=== PATIENT | male | born 1945 | race Caucasian/White ===

== ENCOUNTER 2018-12-19 15:08 | Observation (INO) ==
[2018-12-19] MEDS ORDERED: ASPIRIN PO ONE (15:15)
[2018-12-19 15:43] LABS: BASO# 0.03 X1000 (0.0-0.2); BASO% 0.4 % (0.0-0.8); EOS# 0.18 X1000 (0.0-0.7); EOS% 2.5 % (0.0-10.0); HEMATOCRIT 41.2 % (42.0-52.0); HEMOGLOBIN 13.6 g/dL (14.0-18.0); IMM GRAN# 0.02 X1000 (0.0-0.04); IMM GRAN% 0.3 % (0.0-0.5); LYMPH# 0.97 X1000 (1.2-3.4); LYMPH% 13.5 % (20.5-51.1); MCH 31.3 PG (27-31); MCV 94.7 FL (81-99); MONO# 0.85 X1000 (0.11-0.59); MONO% 11.8 % (1.7-9.3); MPV 10.3 FL (7.4-10.4); NEUT# 5.13 X1000 (1.4-6.5); NEUT% 71.5 % (42.2-75.2); PLT 174 X1000 (130-400); RBC 4.35 XMIL (4.7-6.1); RDW 13.3 % (11.5-14.5); WBC 7.18 X1000 (4.8-10.8)
[2018-12-19 15:56] LABS: INR 1.03
--- NOTE | 2018-12-19 15:56 | Diag Imaging Result Doc PS360 ---
EXAM: CHEST-2 VIEWS HISTORY: chest pain TECHNIQUE: Two views COMPARISON: 04/29/2017 FINDINGS: The lungs are well expanded. The heart is not enlarged. The vessels are not distended. There are no infiltrates. No pleural effusions. Left lower lobe granuloma. IMPRESSION: No acute abnormality. Electronically signed by Jorge Luis Arndt 12/19/2018 3:54 PM
[2018-12-19 15:57] LABS: PTT 35.3 Seconds (22.3-41.8)
[2018-12-19 16:04] LABS: AGAP 12; ALBUMIN 4.2 g/dL (3.5-5.0); ALKALINE PHOSPHATASE 88 U/L (32-122); BUN 12 mg/dL (8-22); CALCIUM 9.4 mg/dL (8.8-10.2); CHLORIDE 101 mmol/L (98-107); CK PROFILE 175 U/L (24-204); COSMO 279; CREATININE 0.9 mg/dL (0.7-1.2); ESTIMATED GFR > 60; GLUCOSE 88 mg/dL (70-104); GOT 14 U/L (10-34); GPT 9 U/L (10-44); SODIUM 140 mmol/L (136-145); TCO2 27 mmol/L (25-35)
--- NOTE | 2018-12-19 16:09 | PROVIDER DOCUMENTATION ---
HPI-Chest Pain - General Chief Complaint: Chest Pain Stated Complaint: CHEST PAIN Time Seen by Provider: 12/19/18 15:33 Source: patient Allergies/Adverse Reactions: Patient Allergies Allergy/AdvReac Type Severity Reaction Status Date / Time No Known Allergies Allergy Verified 12/19/18 15:17 Home Medications: Home Medication List Medication Instructions Recorded Confirmed Last Taken Type Citalopram [Celexa] 40 mg PO DAILY 12/19/18 12/19/18 Unknown History Fluticasone 27.5 Mcg Nasal Spr 1 dose INH DAILY 12/19/18 12/19/18 Unknown History [Veramyst Nasal [place]] Lisinopril 10 mg PO DAILY 12/19/18 12/19/18 Unknown History Silodosin 8 mg PO DAILY 12/19/18 12/19/18 Unknown History Tamsulosin [Flomax] 0.4 mg PO DAILY 12/19/18 12/19/18 Unknown History - History of Present Illness-CP Nature of Presenting Problem: Patient is a 73 yowm who complains of left-sided chest pain associated with SOB and lightheadedness x 2 days. The s/s only occur with exertion. Denies n/c, fever, diaphoresis, or any other complaints. The pain radiates to his left arm when it occurs. Denies chest pain or discomfort at this time. He is non-toxic in appearance. Quality of Pain: reports: other ("discomfort") Review of Systems - Adult - REVIEW OF SYSTEMS - ADULT Constitutional: reports: no symptoms reported. denies: chills, fever Eyes: reports: no symptoms reported Ears, Nose, Mouth & Throat: reports: no symptoms reported Cardiovascular: reports: see HPI Respiratory: reports: see HPI Gastrointestinal: reports: no symptoms reported Genitourinary: reports: no symptoms reported Musculoskeletal: reports: no symptoms reported Integumentary: reports: no symptoms reported Neurological: reports: no symptoms reported Psychiatric: reports: no symptoms reported Endocrine: reports: no symptoms reported Hematologic/Lymphatic: reports: no symptoms reported Allergic/Immunologic: reports: no symptoms reported All Other Systems: Reviewed and Negative Past History - Adult - PAST MEDICAL HISTORY-ADULT Review of Records: reports: Old Records Reviewed, Nursing Assessment Review, Medications Reviewed, Social history reviewed & non-contributory. Major Childhood Illnesses: reports: denies history Cardiovascular: reports: CHF Respiratory: reports: denies history Gastrointestinal: reports: denies history Musculoskeletal: reports: denies history Neurological: reports: denies history Psychiatric: reports: denies history Endocrine/Immune: reports: denies history - PRIOR SURGERIES/PROCEDURES Surgical/Procedure History: reports: reviewed, not pertinent. denies: recent surgery - FAMILY HISTORY Family History: reviewed, not pertinent - SOCIAL HISTORY Smoking: non-smoker, quit greater than 1 year Physical Exam-General - PHYSICAL EXAM-ADULT Initial Vital Signs Reviewed: Yes - CONSTITUTIONAL General Appearance: alert, no apparent distress. negative: lethargic, slow to respond - EYES Eyes: PERRL/EOMI, pink conjunctivae - HEAD, EARS, NOSE, MOUTH & THROAT HENMT: normocephalic/atraumatic, moist mucous membranes - NECK Neck: full range of motion, supple, normal inspection - RESPIRATORY Respiratory: chest non-tender, lungs clear, normal breath sounds, no respiratory distress, no accessory muscle use - CARDIOVASCULAR Cardiovascular: normal peripheral pulses, regular rate, rhythm, no edema, no gallop, no JVD, no murmur - GASTROINTESTINAL (ABDOMEN) Abdominal Exam: normal bowel sounds, non tender, soft - MUSCULOSKELETAL Back Exam: normal inspection Extremity: normal range of motion, non-tender, normal gait, normal inspection - SKIN Integumentary: normal color, warm/dry. negative: cyanosis, diaphoresis, jaundice, mottled, pallor - NEUROLOGIC Neurologic: grossly normal, no motor/sensory deficits - PSYCHIATRIC Psych/Mental Status: normal mood/affect, normal thought content, normal thought process, oriented x 3 - HEART Score HEART Score: History: Highly Suspicious HEART Score: ECG: Non-Specific Repolarization Disturbance/LBBB/PM HEART Score: Age: > or = 65 Years HEART Score: Risk Factors for Atherosclerotic Disease: 1 or 2 Risk Factors HEART Score: Troponin: < or = Normal Limit Total HEART Score:: 6 Progress - PLAN OF CARE/RESULTS Progress/Plan/Lab Results: Vital Signs - 8 hr 12/19/18 15:11 Temperature 98.3 F Pulse Rate 103 H Respiratory Rate 14 Blood Pressure 159/76 O2 Sat by Pulse Oximetry 97 Laboratory Results - last 24 hr 12/19/18 12/19/18 12/19/18 15:21 15:21 15:21 WBC 7.18 RBC 4.35 L Hgb 13.6 L Hct 41.2 L MCV 94.7 MCH 31.3 H MCHC 33.0 RDW Std Deviation 13.3 Plt Count 174 MPV 10.3 Immature Gran % (Auto) 0.3 Neut % (Auto) 71.5 Lymph % (Auto) 13.5 L [place] % (Auto) 11.8 H Eos % (Auto) 2.5 Baso % (Auto) 0.4 Immature Gran # (Auto) 0.02 Neut # (Auto) 5.13 Lymph # (Auto) 0.97 L [place] # (Auto) 0.85 H Eos # (Auto) 0.18 Baso # (Auto) 0.03 PT INR PTT (Actin FS) Sodium 140 Potassium 4.0 Chloride 101 Carbon Dioxide 27 Anion Gap 12 BUN 12 Creatinine 0.9 Estimated GFR/1.73 m2 > 60 BUN/Creatinine Ratio 13 Glucose 88 Calculated Osmolality 279 Calcium 9.4 Total Bilirubin 0.50 AST 14 ALT 9 L Alkaline Phosphatase 88 Creatine Kinase 175 Troponin T Wnz-L-Ippskcdgrgt Pept 59 Total Protein 6.0 L Albumin 4.2 Globulin 2.0 Albumin/Globulin Ratio 2.0 12/19/18 12/19/18 15:21 15:21 WBC RBC Hgb Hct MCV MCH MCHC RDW Std Deviation Plt Count MPV Immature Gran % (Auto) Neut % (Auto) Lymph % (Auto) [place] % (Auto) Eos % (Auto) Baso % (Auto) Immature Gran # (Auto) Neut # (Auto) Lymph # (Auto) [place] # (Auto) Eos # (Auto) Baso # (Auto) PT 14.0 INR 1.03 PTT (Actin FS) 35.3 Sodium Potassium Chloride Carbon Dioxide Anion Gap BUN Creatinine Estimated GFR/1.73 m2 BUN/Creatinine Ratio Glucose Calculated Osmolality Calcium Total Bilirubin AST ALT Alkaline Phosphatase Creatine Kinase Troponin T < 0.010 Rfo-L-Weczancyhyd Pept Total Protein Albumin Globulin Albumin/Globulin Ratio Orders Category Date Time Status Cardiac Monitoring DIRECTED Care 12/19/18 15:15 Active Oxygen Therapy- ED Nursing DIRECTED Care 12/19/18 15:15 Active Saline Loc NOW Care 12/19/18 15:15 Active CHEST-2 VIEWS [RAD] Stat Exams 12/19/18 15:15 Completed CBC WITH ELECTRONIC DIFF [HEME] Stat Lab 12/19/18 15:21 Completed CK PROFILE [SP CHEM] Stat Lab 12/19/18 15:21 Completed COMPREHENSIVE METABOLIC PANEL [CHEM] Stat Lab 12/19/18 15:21 Completed PRO B-NATRIURETIC PEPTIDE Stat Lab 12/19/18 15:21 Completed PROTIME WITH INR [COAG] Stat Lab 12/19/18 15:21 Completed PTT [COAG] Stat Lab 12/19/18 15:21 Completed TROPONIN T Stat Lab 12/19/18 15:21 Completed Aspirin Med 12/19/18 15:15 Discontinued 325 mg PO NOW ONE CP/SOB/Palp >45 yrs of Age Stat Oth 12/19/18 15:15 Ordered EKG [EKG] Stat Ther 12/19/18 15:15 Ordered Result Diagrams: 12/19/18 15:21 12/19/18 15:21 - REASSESSMENT Reassessment #1 Time Reassessed: 16:20 Status: other (Admitting HPS paged. Pt denies cp at this time. He is in agreement with admission plan.) - EKG 1 Time of EKG reading by physician:: 15:17 EKG Read and Signed by:: Elizabeth Chang EKG Interpretation (*Must complete 3 of following elements*): Abnormal Rate: 102 Rhythm: sinus tach, non specific ST changes in lateral leads QRS: normal ST Wave: non-specific ST changes Prior EKG Comparison: changes noted - XRAY 1 XRAY Study: Chest ([facility] - [address] [place], [place] [id number] [facility] - [address] [place] [address] Department of Imaging Patient: MEET PASTOR Date: 12/19/18#: [id number] : 1945DM Status: PRE ERAcct#: [id number] Age/Sex: 73/MRoom/Bed: Loc: P.ED Ordering Physician: Elizabeth Chang MD Family Physician: Lyle Watson MD Reason for Procedure: chest pain Signed EXAM: CHEST-2 VIEWS HISTORY: chest pain TECHNIQUE: Two views COMPARISON: 04/29/2017 FINDINGS: The lungs are well expanded. The heart is not enlarged. The vessels are not distended. There are no infiltrates. No pleural effusions. Left lower lobe granuloma. IMPRESSION: No acute abnormality. Electronically signed by Jorge Luis Arndt 12/19/2018 3:54 PM 12/19/18 1554 Interpreting Physician: Jorge Luis Arndt MD Dictated Date/Time: 12/19/18 1553 cc: Elizabeth Chang MD; Lyle Watson MD) - CONSULTS/PCP/HOSPITALIST Notification #1 *Consult/PCP/Hospitalist*: GIACOMO Rodriguez Time Discussed: 16:20 Reason/Comments: admission- cp Consult Disposition: Will see in ED, Admit Departure - Departure Date of Disposition Decision: 12/19/18 Time of Disposition Decision: 16:20 DIAGNOSIS: Shortness of breath Chest pain Qualifiers: Chest pain type: unspecified Qualified Code(s): R07.9 - Chest pain, unspecified Disposition: ADMITTED INPATIENT 09 Certified Medical Emergency: Emergent Condition: Stable Referrals and Follow-Ups: Lyle Watson MD [Primary Care Provider] - - Critical Care Note This patient required my direct & personal management of CC.: No Attestation - Physician/ DIAMANTE Attestation Patient care was provided by Advanced Practice Provider:: Yes Advanced Practice Provider:: Manuel Fisher Advanced Practice Provider documentation review:: The Mid-level provider documentation, treatment plan and medical decision making was reviewed by the physician who agrees with all treatment and medical decision making by the MLP. The physician spent face to face time with patient:: No Advanced Practice Provider documentation review:: Supervising physician onsite and consulted in the evaluation and care of this patient. The physician did not have a face to face encounter with the patient.
[2018-12-19] MEDS ORDERED: MORPHINE IV PRN (17:19)
[2018-12-19] MEDS ORDERED: TYLENOL PO PRN (17:19)
[2018-12-19] MEDS ORDERED: ZOFRAN IV PRN (17:19)
--- NOTE | 2018-12-19 17:29 | EKG Report ---
Test Performed on : 12/19/2018 3:15:34 PM Test Reason : chest pain Blood Pressure : / mmHG Vent. Rate : 102 BPM Atrial Rate : 102 BPM P-R Int : 138 ms QRS Dur : 070 ms QT Int : 346 ms P-R-T Axes : 053 093 069 degrees QTc Int : 450 ms Poor data quality, interpretation may be adversely affected Sinus tachycardia. Rightward axis Low voltage QRS Borderline ECG When compared with ECG of 29-APR-2017 22:29, No significant change was found Unconfirmed Result
[2018-12-19] MEDS: PRILOSEC PO SCH (17:46)
[2018-12-19] MEDS ORDERED: LOVENOX SUBQ SCH (18:00)
--- NOTE | 2018-12-19 18:09 | Diag Imaging Result Doc PS360 ---
EXAM: CT THORAX W/O CONTRAST INDICATION: chest congestion cough TECHNIQUE: This exam was performed using automated exposure control, adjustment of mA or kV according to patient size, and/or use of iterative reconstruction technique. COMPARISON: None. FINDINGS: There are mild airspace opacities in the left upper lobe near the apex, the perihilar region in the right upper lobe, and the medial lower lobes bilaterally. This suggests mild multifocal pneumonitis. There is mild subsegmental atelectasis at the lower lung zones bilaterally. There is a calcified granuloma in the left lower lobe. There is no pleural fluid collection and no pneumothorax. There are calcified mediastinal lymph nodes indicating prior granulomatous disease. There is aortic atherosclerotic calcification and coronary artery calcification. There is trace pericardial fluid. There is no evidence of cardiomegaly. Limited views of the upper abdomen are essentially unremarkable. IMPRESSION: Mild bilateral multifocal airspace infiltrates as described. Electronically signed by Lyle Munoz 12/19/2018 6:06 PM
--- NOTE | 2018-12-19 19:42 | HISTORY AND PHYSICAL ---
PRIMARY CARE PHYSICIAN: Lyle Watson MD CHIEF COMPLAINT: Chest discomfort. HISTORY OF PRESENT ILLNESS: This is a 73-year-old male with a past medical history of dyslipidemia and hypertension who presented to the emergency department complaining of chest discomfort for the last 5 to 6 days. He reports that the sensation is located in the central thoracic area, suprasternal area, sometimes radiates to the left arm. Denies any radiation to the back or to the jaw. Denies any sweating or nausea or shortness of breath. He notices that sensation when he is walking. He also complains of some cough that he attributes to possible flu. He was not spitting out anything. He denies any fever or chills. He denies any sick contacts. Because of his risk factors for coronary artery disease, we decided to admit this patient to observation for chest pain workup. PAST MEDICAL HISTORY: 1. Hypercholesterolemia. 2. Hypertension. 3. Benign prostatic hypertrophy. 4. Bladder cancer. 5. Admitted April 2017 for a TIA. PAST SURGICAL HISTORY: Hernia repair. ALLERGIES: No known drug allergies. FAMILY HISTORY: Noncontributory. REVIEW OF SYSTEMS: Eleven systems were reviewed and all symptoms are related to H and P. PHYSICAL EXAMINATION: VITAL SIGNS: Temperature 98.3 degrees, heart rate 103, respiratory 14, blood pressure 159/76, and O2 saturation 97% on room air. GENERAL: On examination, this is a 73-year-old male, lying in bed, in no acute distress. HEENT: Head is normocephalic, atraumatic. Pupils equal, round, reactive to light and accommodation. Anicteric sclerae. Pale conjunctivae. NECK: No JVD noted. No carotid bruits. No lymphadenopathy. No thyromegaly. CARDIOVASCULAR: S1, S2 heard. No murmurs, gallops, or rubs. Regular rate and rhythm. RESPIRATORY: Clear bilaterally to auscultation. No work of breathing. Not using accessory muscles. ABDOMEN: Soft, nontender to palpation. Bowel sounds present. No organomegaly. EXTREMITIES: No clubbing, cyanosis, or edema. Peripheral pulses present in both legs. NEUROLOGIC: Patient alert and oriented x3. Moves 4 extremities. LABORATORY DATA: First set of troponins were negative. The white cell count 7.18, hemoglobin 10.6, hematocrit 41.2, platelets are normal. BMP is completely normal. ProBNP is 59. ASSESSMENT AND PLAN: 1. Chest pain. We are admitting this patient to rule out any acute coronary syndrome. First set of troponins are negative. No grossly obvious ST changes in the EKG. We are going to order an echocardiogram Lexiscan tomorrow. Because of his symptoms that he attributes to flu, cough, and chest discomfort, we are going to also check CT of the thorax without contrast as well to rule out any pneumonia on this patient. 2. Hypertension. We will continue with lisinopril. 3. Hyperlipidemia. We are going to check a lipid panel today. The patient was taking atorvastatin, but I do not see that in the list of home medications. As we mentioned before, we will check lipid panel and we will go from there. 4. Benign prostatic hypertrophy. We will continue home medications. 5. Disposition. Depending upon the results of the exams mentioned above. cc: Jere Witt MD MTDD
[2018-12-19] MEDS ORDERED: VANCOMYCIN IV PER PHARMACY MISC SCH (20:00)
[2018-12-19] MEDS ORDERED: FLOMAX PO SCH (21:15)
[2018-12-19] MEDS ORDERED: PRINIVIL PO SCH (21:15)
[2018-12-19] MEDS: VANCOMYCIN 1 GM/NS 1 GM/250 ML IVPB IV SCH (22:38)
[2018-12-20] MEDS: VANCOMYCIN 1 GM/NS 1 GM/250 ML IVPB IV SCH (00:03)
[2018-12-20] MEDS: ZOSYN 3.375 GM in NS 50 ML IV SCH ×4 (02:06→14:35)
[2018-12-20] MEDS: PRILOSEC PO SCH (06:04)
[2018-12-20 06:28] LABS: HEMATOCRIT 40.3 % (42.0-52.0); HEMOGLOBIN 13.1 g/dL (14.0-18.0); MCHC 32.5 g/dL (33-37); MCV 95.3 FL (81-99); MPV 10.6 FL (7.4-10.4); RBC 4.23 XMIL (4.7-6.1); RDW 13.3 % (11.5-14.5); WBC 5.67 X1000 (4.8-10.8)
[2018-12-20 06:45] LABS: AGAP 9; BUN 12 mg/dL (8-22); CHLORIDE 104 mmol/L (98-107); CHOLESTEROL 134 mg/dL (0-200); COSMO 282; CREATININE 0.8 mg/dL (0.7-1.2); ESTIMATED GFR > 60; GLUCOSE 121 mg/dL (70-104); HDL 53 mg/dL (35-55); LDL 66 mg/dL; POTASSIUM 4.3 mmol/L (3.5-5.1); SODIUM 141 mmol/L (136-145); TCO2 28 mmol/L (25-35); TRIGLYCERIDES 75 mg/dL (39-160); VLDL 15 mg/dL
[2018-12-20] MEDS ORDERED: PRINIVIL PO SCH (09:00)
[2018-12-20] MEDS ORDERED: CELEXA PO SCH (09:00)
[2018-12-20] MEDS ORDERED: RAPAFLO PO SCH (09:00)
[2018-12-20] MEDS ORDERED: FLOMAX PO SCH (09:00)
[2018-12-20] MEDS ORDERED: LEXISCAN ONE (10:00)
[2018-12-20] MEDS ORDERED: AMINOPHYLLINE ONE (10:00)
--- NOTE | 2018-12-20 14:53 | GRADED EXERCISE REPORT ---
DATE: 12/20/2018 INDICATION: Chest pain. ORDERING PHYSICIAN: I believe DR. Rm SUMMARY: He underwent Lexiscan infusion per protocol. Baseline blood pressure is 147/82, heart rate 75. Baseline EKG was really nonspecific. He did develop chest pressure and tightness during the Lexiscan. He did have some ST depression but it did not qualify for greater than 1 mm change and, therefore, did not qualify for ischemic changes. However, he was clinically positive. His peak blood pressure 154/88, heart rate 112. After the test was completed though, he started developing some chest discomfort but also left shoulder pain radiating to his hand and up into his face. He says that it is worse it has been. We got an EKG at that time which showed to me more pronounced ST changes in 2, AVF, V5, V6, and AVR had an increase there. Those looked greater than 1 mm depression, especially in 2, AVF, V5, V6, so I would say there was some ST changes. We gave him some coffee. We ended up giving him 75 mg of aminophylline and the chest pain resolved and his EKG changes in the inferolateral leads resolved as well. The patient currently chest pain free. I did contact Dr. Toussaint to have him assess the EKG changes, which we will get a stat post stress echocardiogram and finish his myocardial imaging, and decide about a future course at this point. I also contacted primary team, Radha Michelle, nurse practitioner, about reassessing the patient after he has completed all his imaging. The test, I felt, initially, clinically positive and electrically positive with the stress test imaging after the 6 minute protocol was completed with ST changes subsequently, so myocardial perfusion will be reported separately. cc: Vikas Brunner MD
[2018-12-20] MEDS ORDERED: VANCOMYCIN 1,500 MG in NS 250 ML IV SCH (15:00)
--- NOTE | 2018-12-20 15:30 | Diag Imaging Result Document ---
PROCEDURE NAME: MYOCARDIAL PERF SCAN, STR/REST - 12/20/2018 SUMMARY: The patient was administered 11.3 mCi of technetium-99m sestamibi, after which resting cardiac images were obtained. The patient was subsequently administered Lexiscan 0.4 mg intravenously, after which the heart rate went from 75 beats per minute to 112 beats per minute and the blood pressure went from 147/82 to 143/83. With Lexiscan, the patient reported chest discomfort suspicious for angina. Following the administration of Lexiscan, the patient was administered 33.0 mCi of technetium-99m sestamibi, after which gated stress cardiac images were obtained. Baseline ECG demonstrated normal sinus rhythm. The patient's ECG demonstrated no significant change in the first several minutes. However, as patient recovered, he manifested 1.[address]-segment depression in the lateral precordial leads which ultimately improved over several minutes. The patient's chest symptoms resolved. SPECT images were reconstructed in the short, horizontal, and vertical long axis. Review of these images demonstrated mildly diminished activity in the apical anterior wall and apex, left ventricle on stress images which improves on resting images. Gated images demonstrate a calculated left ventricular ejection fraction of 70% with symmetrical wall motion/thickening. CONCLUSIONS: 1. Adequate response to Lexiscan. 2. Clinically positive for chest pain with Lexiscan. 3. Electrocardiographically positive for Lexiscan-induced myocardial ischemia. 4. Lexiscan sestamibi images demonstrate mild reversibility in the apical anterior wall and apex as described, suggesting inducible myocardial ischemia in the distribution of left anterior descending coronary. Normal left ventricular systolic function demonstrated. Clinical correlation recommended. cc: MD Jefferson Chris MD
[2018-12-20 15:49] VITALS: BP 129/68
--- NOTE | 2018-12-20 18:05 | ECHO REPORT ---
ORDER DATE: 12/19/2018 SUMMARY: 1. Technically difficult study due to limited acoustic window quality. 2. Aortic valve is trileaflet and opens normally on 2-dimensional images. Mitral and tricuspid valves are without evidence of structural abnormality, while pulmonic valve is not well demonstrated. There is trace tricuspid regurgitation. The aortic root is normal in size. 3. Normal left ventricular dimensions suggested. Estimated left ventricular ejection fraction appears to be at least 60%. No obvious regional wall motion abnormality can be appreciated. Doppler suggests grade 1 left ventricular diastolic dysfunction. Left atrium, right atrium, and right ventricle are normal in size with grossly preserved right ventricular systolic function. 4. No pericardial effusion. 5. Appearance of inferior vena cava suggests normal central venous pressure. CONCLUSIONS: 1. Technically difficult study. 2. No significant valvular abnormality demonstrated. 3. Estimated left ventricular ejection fraction is at least 60%, without obvious wall motion abnormality. 4. Grade 1 left ventricular diastolic dysfunction suggested. cc: MD Jere Chris MD
--- NOTE | 2018-12-20 23:19 | DISCHARGE SUMMARY ---
ADMISSION DATE: 12/19/2018 DISCHARGE DATE: 12/20/2018 DATE OF TRANSFER: 12/20/2018 Patient transferred to [facility] for left heart catheterization. DISCHARGE DIAGNOSIS: 1. Chest pain. The patient was admitted to rule out acute coronary syndrome. He did have a positive stress test. All his imaging has been evaluated by Dr. Toussaint. [facility] with [facility] and they agree the patient does need to follow up with a left heart catheterization and will be transferred to their service for further treatment and evaluation. 2. Hypertension. Continue lisinopril. 3. Hyperlipidemia. Patient has been taken a statin. 4. Bilateral infiltrates seen on chest CT. However, patient has been afebrile, no white count, no complaints of fever or productive cough, nontoxic appearance. He was initiated on intravenous antibiotics. This may need to be reevaluated. 5. Bladder cancer history. 6. Transient ischemic attack in April 2017. HOSPITAL COURSE: Briefly Mr. Gomez is a 73-year-old male with a past medical history of dyslipidemia, hypertension, presented to the ED complaining of chest discomfort for 5 to 6 days. The sensation was located in the central thoracic area substernal that radiated to his left arm at times but no radiation to the back or jaw. There was no diaphoresis, nausea or shortness of breath associated with it. He noticed this sensation when he is walking, however he did complain of some flu symptoms but no fever or chills. Denied any sick contacts. Because of his risk factors for coronary artery disease, the patient was admitted for observation and chest pain workup. He has had 3 sets of negative cardiac enzymes. No white count, continues to be afebrile however he did have a positive stress test with EKG changes. Dr. Toussaint spoke with [facility]. They are in agreement the patient needs to be transferred for left heart catheterization. VITAL SIGNS: At time of discharge temperature is 98.3 degrees, heart rate 103, respirations 14, blood pressure 159/76, O2 97% on room air. CURRENT MEDICATIONS: 1. Prinivil 10 mg p.o. at bedtime. 2. Flomax 0.4 mg p.o. at bedtime. 3. Morphine 2 mg IV q.3 hours p.r.n. 4. Tylenol 650 mg p.o. q.6 hours p.r.n. 5. Celexa 40 mg p.o. daily. 6. Lovenox 40 mg subcu q.24. 7. Prilosec 40 mg p.o. daily. 8. Zofran 4 mg IV q.4 hours p.r.n. 9. Vancomycin PKS to dose. 10. Zosyn 3.375 g IV q.6 hours. 11. Rapaflo 8 mg p.o. daily. DISPOSITION: Patient is being transferred to [facility] for left heart catheterization. Dictated by OZIEL Hicks for Jefferson Wiggins MD cc: Lyle Watson MD
--- NOTE | 2018-12-21 01:32 | DISCHARGE SUMMARY ---
ADMISSION DATE: 12/19/2018 DISCHARGE DATE: 12/20/2018 ADDENDUM: The patient notes that his chest pain has resolved. He is really having no cough or congestion. No shortness of breath. No fevers. He did undergo a stress test earlier today that was abnormal. After discussion with Cardiology we are going to transfer him to [facility] for further evaluation. cc: Jefferson Wiggins MD
== END 2018-12-20 18:21 | disposition short-term general hospital (02) ==
LOC: P.ED 15:08 → P.MEDSURG 15:08 → SUATTDRO 19:31
PROVIDERS: ATTEND Family Medicine